=== PATIENT | female | born 1970 ===

== ENCOUNTER 2017-01-07 07:44 | Outpatient (CLI) | payer OTHER ==
--- NOTE | 2017-01-07 09:16 | Ultrasound Report ---
ULTRASOUND RENAL INDICATION: Hematuria. COMPARISON: None similar at this institution. FINDINGS: Renal sonography demonstrates normal renal cortical echogenicity. Grossly preserved renal contours. No hydronephrosis. Echogenic imaged liver. RIGHT KIDNEY measures 11.1 x 4.1 x 5.5 cm with cortical thickness of 1.6 cm. LEFT KIDNEY estimated at 11.4 x 4.5 x 5.9 cm with cortical thickness of 1.7 cm. URINARY BLADDER appears unremarkable. CONCLUSION: No acute renal sonographic abnormality with fatty liver suspected. Thank you for the opportunity to participate in this patient's care.
--- NOTE | 2017-01-07 09:21 | Ultrasound Report ---
ULTRASOUND ABDOMEN COMPLETE INDICATION: Elevated liver enzymes. COMPARISON: None similar. FINDINGS: Abdominal sonography demonstrates diffuse hepatic echogenic coarsening with grossly preserved contours. No definite focal suspicious lesions or biliary dilatation. No gallstones or pericholecystic fluid. Gallbladder wall thickness is 2.1 mm. Common bile duct is 3.7 mm. Nonspecific 2 mm faint echogenicity within the common bile duct as on images 39-40 not excluded for sludge versus artifact. Homogenous spleen, approximately 8.2 cm in length. No ascites. Imaged pancreas grossly within normal limits. Unremarkable IVC. Nonaneurysmal abdominal aorta. No hydronephrosis with right kidney approximately 11.1 x 4.1 x 5.5 cm with cortical thickness of 1.6 cm while the left kidney is 11.4 x 4.5 x 5.9 cm with cortical thickness of 1.7 cm. CONCLUSION: Fatty liver without acute abdominal sonographic abnormality, as described. Please correlate. Thank you for the opportunity to participate in this patient's care.
== END 2017-01-07 07:45 | disposition home or self-care (01) ==
LOC: US 07:44
PROVIDERS: ATTEND Internal Medicine
DX: E11.9 Type 2 diabetes mellitus without complications (principal); R79.89 Other specified abnormal findings of blood chemistry; R31.9 Hematuria, unspecified; K76.0 Fatty (change of) liver, not elsewhere classified; K75.9 Inflammatory liver disease, unspecified
CPT/HCPCS: 76700; 76770